=== PATIENT | male | born 1945 | race Caucasian/White ===

== ENCOUNTER 2016-12-03 15:25 | Inpatient (IN) | payer MEDICARE ==
[2016-12-03] VITALS (8 sets, daily range): BP systolic 91–117; BP diastolic 43–63; PULSE 57–72; RESP 14–20; O2SAT 97–100
[~2016-12-03] VITALS: Ht 175.3 cm; Wt 84.5 kg
[~2016-12-03 15:25] MED LIST: AMLO5TAB2 PO; ASPI-973 PO; BLOO-204 MC; CARV12.52 PO; DOXY100C2 PO; FOLI1TAB18 PO; INSU200I SQ; LANC1EAC MC; LEVO25TA5 PO; LISI10TA PO; LOVA20TA PO; MAGN400T23 PO; SPIR25TA3 PO; ZYL100 PO
--- NOTE | 2016-12-03 16:04 | ED.REPORT ---
HPI-General Illness Date of Service Dec 03, 2016 ED Provider: Lucas Yi MD Patient is a 71 year old male with a hx of HTN, DM, and CVA who presents to the ED from his PCP Dr. Crawford for critical labs values including a high potassium level of 6.7. He reports essentially no symptoms at this time; states that he was going to the doctor for a wound check. He denies chest pain, SOB, constipation, hematuria, hematochezia, headache, fever, vision changes, or any other symptoms. Nursing Notes Stated Complaint: CRITICAL LAB VALUES Chief Complaint: General Complaint Nursing Notes Reviewed: Yes Allergies: Coded Allergies: No Known Allergies (Unverified , 06/02/15) Scheduled Allopurinol (Allopurinol) 100 Mg Tablet 100 MG PO BID Amlodipine (Amlodipine) 5 Mg Tablet 5 MG PO DAILY Aspirin (Aspirin) 81 Mg Tablet 81 MG PO DAILY Carvedilol (Carvedilol) 12.5 Mg Tablet 12.5 MG PO BID Doxycycline Hyclate (Doxycycline Hyclate) 100 Mg Capsule 100 MG PO BID Folic Acid (Folic Acid) 1 Mg Tablet 1 MG PO DAILY Insulin Lispro (Humalog Kwikpen) 200 Unit/Ml (3 Ml) Insuln.pen 200 UNIT SQ ASDIRECTED Levothyroxine (Levothyroxine) 25 Mcg Tablet 25 MCG PO DAILY Lisinopril (Lisinopril) 10 Mg Tablet 10 MG PO DAILY Lovastatin (Lovastatin) 20 Mg Tablet 20 MG PO HS Magnesium Oxide (Mag-Oxide) 400 Mg Tablet 400 MG PO BID Spironolactone (Spironolactone) 25 Mg Tablet 0.5 TAB PO DAILY General Time Seen by MD: 15:53 Chief Complaint Other (Critical lab values) Hx Obtained From: Patient Arrived By: Walk-in Sudden in Onset?: Yes Onset Occurred: Just prior to arrival Severity: Current: No pain currently Severity: Maximum: No pain Past Medical History Past Medical History CHF Possible Afib Hypogonadism MRSA Reports: Diabetes mellitus, Hypertension, Stroke (With residual R sided weakness and aphasia ) Reports: Renal failure, Thyroid disease Past Surgical History None reported Smoking History Unknown if Ever Smoker Social History Has part-time caregiver Alcohol Use: "Social" Other Social History: Lives alone Review of Systems Full Review of Systems Constitutional: Denies: Fever Respiratory: Denies: Shortness of breath Cardiovascular: Denies: Chest pain GI: Reports: Diarrhea, Denies: Constipation, Hematochezia Male: Denies Hematuria Neurologic: Denies: Headache, Vision change Complete sys rev & neg: except as marked. Physical Exam Nursing note and vitals reviewed. Constitutional: Eldelry male sittting up in bed. Not diaphoretic. Head: Normocephalic and atraumatic. Mouth/Throat: Oropharynx is clear and moist. No oropharyngeal exudate. Eyes: EOM are normal. Pupils are equal, round, and reactive to light. Area of erythema to medial aspect of L lower lid that patient states is improving. Cardiovascular: Irregularly irregular. Equal and intact distal pulses throughout. Pulmonary/Chest: Effort normal and breath sounds normal. No respiratory distress. Abdominal: Soft. No distension. There is no tenderness, rebound, or guarding. Musculoskeletal: Range of motion grossly intact, moving all extremities. No tenderness appreciated. Neurological: AOx3. Grossly nonfocal exam. Appears to have residual aphasia from previous CVA. Skin: Warm and dry, no rashes or pallor appreciated. Bandaged wounds to R arm. Psychiatric: Appropriate mood and affect. Behavior appears normal. Vital Signs Vital Signs Date Time Temp Pulse Resp B/P Pulse Ox O2 Delivery O2 Flow Rate FiO2 12/03/16 17:30 61 14 101/53 97 Room Air 12/03/16 15:30 35.8 72 16 91/55 100 Room Air Interpretation & Diagnostics Lab Results Interpretation Result Diagram: 12/03/16 1645 12/03/16 1645 Test 12/03/16 16:45 12/03/16 18:10 White Blood Count 6.1th/mm3 (3.8-10.1) Red Blood Count 2.63mil/mm3 (4.40-5.80) Hemoglobin 8.4g/dL (13.8-17.2) Hematocrit 24.6% (41.0-50.0) Mean Corpuscular Volume 93.5fL (81-100) Mean Corpuscular Hemoglobin 31.9pg (27.0-35.0) Mean Corpuscular Hemoglobin Concent 34.1% (32.0-37.0) Red Cell Distribution Width 11.7% (12.3-15.4) Platelet Count 164bil/L (150-400) Neutrophils (%) (Auto) 77.2% (40-74) Lymphocytes (%) (Auto) 11.1% (14-46) Monocytes (%) (Auto) 8.5% (4-12) Eosinophils (%) (Auto) 2.8% (0-5) Basophils (%) (Auto) 0.2% (0-3) Prothrombin Time 11.4sec (8.1-12.5) Prothromb Time International Ratio 1.06ratio Sodium Level 127mEq/L (134-144) Potassium Level 6.7mEq/L (3.5-5.2) Chloride Level 99mEq/L (97-108) Carbon Dioxide Level 14mmol/L (18-29) Blood Urea Nitrogen 59mg/dL (8-27) Creatinine 3.81mg/dL (0.76-1.27) Estimat Glomerular Filtration Rate 17mL/min (>59) Glucose Level 152mg/dL (60-99) Calcium Level 8.8mg/dL (8.5-10.1) Total Bilirubin 0.4mg/dL (0.0-1.2) Aspartate Amino Transf (AST/SGOT) 14U/L (0-50) Alanine Aminotransferase (ALT/SGPT) 13U/L (0-44) Alkaline Phosphatase 119U/L (25-160) Troponin T 0.020ug/L (0.0-0.011) Total Protein 7.2g/dL (6.4-8.4) Albumin 3.3g/dL (3.4-5.0) ECG Interpretation ECG Interpretation: Afib with a rate of 145 No acute ischemic changes, does have shortened QT and possible broadening of the QRS Time: 16:33 Interpreted by: ED physician X-Ray Chest Interpretation Chest Xray Interpretation: IMPRESSION: 1. Prominent perihilar lung markings are suspicious for pulmonary vascular congestion/edema. Please correlate clinically. 2. Mild cardiomegaly. 2. Abnormal appearance of the left humeral head most likely is related to previous trauma. The patient does not have a history of trauma (prior fracture), dedicated left shoulder imaging is recommended. Dictated by: Spencer Ji M.D. on 12/03/2016 at 15:50 Approved by: Spencer Ji M.D. on 12/03/2016 at 15:55 View: Portable, 1 view Interpretation / Wet Read by: Interpret - Radiologist Re-Eval/Medical Decision Med Decision/Clinical Course In summary, 71-year-old male with a complex past medical history presenting to the ED from clinic for evaluation of hyperkalemia. Patient is currently asymptomatic with no chest pain, no shortness of breath. His EKG does not demonstrate any acute ischemic changes, though does have shortened QT, broader QRS. Patient was given calcium, sodium bicarbonate, insulin, and glucose for his hyperkalemia. Of note, he does have a mildly elevated troponin and what appears to be an acute kidney injury. Patient denies knowing that he has any kidney problems. CXR w/ incidental findings concerning for remote injury to the shoulder, though patient reports no trauma or pain. Given the above, plan admission for further evaluation and management, close monitoring, and further workup. Patient agreeable to the plan as stated, no further questions. Time of Eval: 16:17 Re-Evaluation/Progress Note: Discussed tenative plan for admission. Patient understands and agrees with plan. All questions addressed at this time. Consultation : Referral / Consult Name: Viky Antunez DO Consulted With: Hospitalist Call Returned at: 18:04 Auditor Appraiser: Will see patient, Agrees with eval, Agrees with plan, Accepts admit Note: Discussed pt's case. Accepts admit. Counseled Regarding: Diagnosis, Lab results, Need for admission Discharge & Departure Primary Impression: Hyperkalemia Disposition: ADMITTED TO HOSPITAL Discharge Condition All VS Reviewed: Yes Condition: Stable Referrals: Carlos Crawford DPM (PCP) Crit Care Except Billable Proc Time Spent: 30-74 minutes Services Performed: Patient management by me, Time spent at bedside, Reviewing test results, Reviewing imaging, Discussing patient care, Documentation in record Critical Care Notes: Please see MDM Scribe Attestation Portions of this note were transcribed by Dez Bryson. I, Dr. Yi personally performed the history, physical exam and medical decision-making; I reviewed and confirmed the accuracy of the information in the transcribed note. Signed by: Dez Bryson 12/03/16, 1445 copies to: Carlos Crawford DPM, William B MD Dec 03, 2016 16:04 DEZ BRYSON Dec 03, 2016 16:13
[2016-12-03] MEDS ORDERED: 0.9% Sodium Chloride 1,000 ML IV ONE (16:14)
[2016-12-03] MEDS ORDERED: Calcium GLUCOnate 10% (Gm) 1 Gm/10 mL Inj IVPUSH PRN (16:15)
[2016-12-03] MEDS ORDERED: Sodium Bicarb (50 mEq) 8.4% 1 mEq/mL 50 mL Syringe IVPUSH ONE (16:15)
[2016-12-03] MEDS ORDERED: Insulin Human REGular-Omnicell 100 Unit/mL IV ONE (16:25)
[2016-12-03] MEDS ORDERED: Dextrose 10% 250 ML IV ONE (16:25)
--- NOTE | 2016-12-03 16:56 | DRSVH ---
PROCEDURE: X-RAY CHEST ONE VIEW, PORTABLE ([id number]) INDICATIONS: Hyperkalemia TECHNIQUE: One view of the chest was acquired. COMPARISON: None. FINDINGS: Surgical changes and devices: None. Lungs and pleura: Prominent perihilar lung markings are identified without lobar consolidation, pneum othorax, or large effusion. Mediastinum: Mediastinal contours appear normal. Heart size is mildly enlarged. There is aortic at herosclerosis. Bones and chest wall: There is abnormal appearance of the left humeral head, probably related to prio r trauma. Dystrophic calcifications along the expected location of the acromion clavicular ligaments is present with corresponding prominent degenerative changes of the chromic clavicular joint are pre sent on the right. Age-appropriate degenerative changes of the spine are noted. Overlying soft tissu es appear unremarkable. IMPRESSION: 1. Prominent perihilar lung markings are suspicious for pulmonary vascular congestion/edema. Please correlate clinically. 2. Mild cardiomegaly. 2. Abnormal appearance of the left humeral head most likely is related to previous trauma. The em ent does not have a history of trauma (prior fracture), dedicated left shoulder imaging is recommende d. Dictated by: Spencer Ji M.D. on 12/03/2016 at 15:50 Approved by: Spencer Ji M.D. on 12/03/2016 at 15:55
[2016-12-03 16:57] LABS: BASOPHILS % (AUTO) 0.2 % (0-3); EOSINOPHILS % (AUTO) 2.8 % (0-5); MONOCYTES % (AUTO) 8.5 % (4-12); Mean Corpuscular Hemoglobin 31.9 pg (27.0-35.0); Mean Corpuscular Volume 93.5 fL (81-100); NEUTROPHILS % (AUTO) 77.2 % (40-74); Platelet Count 164 bil/L (150-400)
[2016-12-03 17:10] LABS: INR 1.06 ratio
[2016-12-03 17:18] LABS: TROPONIN T 0.02 ug/L (0.0-0.011)
[2016-12-03 18:35] LABS: APPEARANCE,URINE CLEAR (CLEAR,HAZY); COLOR,URINE YELLOW (YELLOW); OCCULT BLOOD,URINE NEGATIVE (NEGATIVE); UROBILINOGEN,URINE NORMAL (NORMAL)
[2016-12-03] MEDS ORDERED: Alum-Mag Hydrox-Simeth 30 mL Suspension PO PRN (19:15)
[2016-12-03] MEDS ORDERED: Ondansetron 2 mg/mL 2 mL Inj IVPUSH PRN (19:15)
[2016-12-03] MEDS ORDERED: 0.9% Sodium Chloride 1,000 ML IV SCH ×2 (19:15→19:50)
[2016-12-03] MEDS ORDERED: Polyethylene Glycol (PEG) 17 Gm Powder PO PRN (19:15)
[2016-12-03] MEDS ORDERED: Glucose 40% Oral Gel 15 Gm Tube PO PRN (20:30)
--- NOTE | 2016-12-03 20:38 | PCM.HPMED ---
Subjective Date of Service Dec 03, 2016 Primary Provider: Admitting Physician: Viky Antunez DO Primary Care Physician: Lalita Doe MD Attending Physician: Viky Antunez DO Allergies Coded Allergies: No Known Allergies (Unverified , 06/02/15) PMH Social History Hx Alcohol Use: Yes Hx Tobacco Use: No Smoking Status: Unknown if Ever Smoker Exam Vital Signs Vital Sign - Last Date Time Temp Pulse Resp B/P Pulse Ox O2 Delivery O2 Flow Rate FiO2 12/03/16 18:53 59 17 92/43 98 Room Air 12/03/16 15:30 35.8 Lab and Diagnostics Result Diagram: 12/03/16 1645 12/03/16 1645 Assessment & Plan HPI: Patient is a 71-year-old male who presents to the emergency room with the complaint of hyperkalaemia. The patient was in the wound care clinic today and had labs drawn and it was noted that he had hyperkalemia. The patient was brought over to the emergency room and found to still be in A. fib with no significant T-wave changes. The patient does have some signs of mild dementia which makes him a difficult historian. The patient currently denies any chest pain, shortness of breath, nausea, vomiting, diarrhea. Patient states that he does have some constipation and his last bowel movement was 2 days ago and his lower extremity edema is chronic in nature. 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 The patient stated that he had right-sided weakness and was unable to speak for several months however he has regained his strength o..n his right side but his speech does remain impaired. Home medications: Allopurinol 100mg PO BID Amlodipine 5 mg daily Aspirin 81 mg daily Carvedilol 12.5 mg by mouth twice a day Doxycycline on 10 mg by mouth twice a day Folic acid 1 mg by mouth daily Humalog 200 units subcutaneous Levothyroxine 25 g by mouth daily Lisinopril 10 mg daily Lovastatin 20 mg daily Magnesium oxide 400 mg by mouth twice a day Spironolactone 12.5 mg daily Allergies: NKDA PMHx: Diabetes type II CAD Paroxysmal A. 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 Please see HPI for pertinent positives, all other systems are negatives. Physical Exam: GEN: Patient was awake, alert, responding appropriately to questions HEENT: Pupils equal round and reactive to light, extraocular eye muscles intact , Neck soft supple, trachea midline, nomocephalic/atraumatic, CV: Irregular rhythm, no murmur auscultated Respiratory: CTAB, no wheezes, rales, rhonchi GI: +bowel sounds x4, soft, compressible, nontender to palpation, mildly distended EXT: +3 pitting edema in the LE to the knee, multiple bruises and skin changes on the upper extremities secondary to previous anticoagulation usage Neuro: + slurred speech, 5/5 UE strength, decreased CN 12, CN II-XI grossly intact Psych: mood and affect were appropriate Assessment and Plan 71-year-old male with chronic lower extremity edema presents secondary to hyperkalemia Hyperkalemia, present on admission -K 6.7 - Continue telemetry -Kayexalate every 6 hours -Hold spironolactone -IV fluids 100 mL an hour 1 L -EKG in the morning Elevated troponins, present on admission -Trend troponins - EKG in the morning Hypertension -Patient is currently hypotensive BP: 92/49 -Hold carvedilol, lisinopril, amlodipine -Continue to monitor Acute on CKD , present on admission - Cr. 3.81, baseline 2.4 from last admission on 06/04/2015 -Continue IVF x 1L -Follow up CMP in the morning -Continue to monitor Chronic hyponatremia, present on admission -Na 127 - Continue IV fluids x 1L -Follow up CMP in the morning Paroxysmal atrial fibrillation -Continue to monitor on telemetry -Patient currently not anticoagulated secondary to previous CVA while on Pradaxa -Continue aspirin -Continue rate control Diabetes -Insulin sliding scale -Accu-Cheks before meals at bedtime -Hemoglobin A1c pending -Diabetic diet Hypothyroidism, present on admission -TSH pending -Continue levothyroxine 25 g daily Hyperlipidemia, present on admission stable -Continue statin Peripheral vascular disease with chronic lower extremity edema -Consult wound care Code Status: Full code Diet: Heart healthy and diabetic Disposition: Due to the nature of the patient's current diagnosis and multiple comorbidities anticipated stay is greater than 2 midnight VTE Prophylaxis: Sub-Q Heparin (Unfractionated) Resuscitation Status: CPR: Attempt Resuscitation Time spent 60 minutes Viky Antunez DO Dec 03, 2016 20:38
--- NOTE | 2016-12-03 20:47 | PCM.ADCARE ---
Advance Care Planning Note Plan: Purpose of encounter: Goals of care Parties in attendance: The patient and Dr. Antunez Decisional capacity: Marginal Diagnosis: Paroxysmal afib PVD HTN Hyperkalemia DM CAD Hypothyroidism Chronic hyponatremia Acute on chronic kidney disease Plan: The patient is aware of the current diagnosis and would like to continue to be full code. The patient understands that this means for chest compressions , intubation, pressors, and all measures involved with CPR. The patient does have some mild dementia and oriented to self and is very clear on his wishes and wishes to continue to be full code. The patient states that he is not and that his person of contact for any medical decision is Lea Reynaga. The patient states that he does not have the phone number at this time but will get us this phone number. He states that his friend does work at [employer] in [place] if we need to get ahold of Lea prior to getting the contact information. CODE STATUS: Full code Time spent with advanced care planning: Greater than 20 minutes Viky Antunez DO Dec 03, 2016 20:47
[2016-12-03 21:59] LABS: TROPONIN T 0.02 ug/L (0.0-0.011)
[2016-12-03] MEDS: Insulin LISPRO 300 Unit/3 mL Inj SUBQ SCH (22:00)
--- NOTE | 2016-12-03 23:06 | WOUND ---
[address] [address] [facility] PATIENT: WILLIAM JOSHI : 1945 MR#: [id number] ADMIT: 12/03/2016 JOB ID: [id number] DATE OF SERVICE: 12/03/2016 HISTORY OF PRESENT ILLNESS: I am seeing this patient because of an injury to his right forearm. He fell a few days ago and on his way down struck the dorsal aspect of his right forearm on a table. He is also being followed by Dr. Crawford for venous foot problems. The patient is also diabetic. PHYSICAL EXAMINATION: In the clinic now, he is bright. He has a little bit of slurred speech though. He has history of a CVA. Blood pressure today is 91/55, pulse is 65, respirations are 18, temperature is 36.9. His weight is 199 pounds. He is drinking coffee now. His glucose in the clinic is 153. Wound #1, right forearm, measures 1.8 x 2 x 0.4. Fibrin covers the entire wound. He is starting to get some kind of granulation along the margins of the wound, but not the center. The periwound skin is intact. Moderate drainage. No odor or eschar. No exposed bone or tendon. I did a selective debridement with 2% lidocaine for anesthetic and I used a small curette. I removed the overlying biofilm and caused a little bit of bleeding of the underlying granulation tissue and underlying subcutaneous tissue. I debrided the entire wound and there are no change in wound measurements. Hemostasis was achieved with pressure. He tolerated the debridement well. PLAN: To dress this wound with Xeroform, then gauze and adhesive foam. Change every 2-3 days. Follow up in a week.
[2016-12-03] MEDS: Heparin 5,000 Unit/mL Inj SUBQ SCH (23:47)
[2016-12-04] VITALS (8 sets, daily range): BP systolic 96–120; BP diastolic 39–71; PULSE 68–98; RESP 18–20; O2SAT 94–97
[2016-12-04 02:53] LABS: Mean Corpuscular Hemoglobin 31.5 pg (27.0-35.0)
[2016-12-04 03:31] LABS: TROPONIN T 0.01 ug/L (0.0-0.011)
--- NOTE | 2016-12-04 03:46 | NUR ---
Admit/BP/Potassium Pt admitted to room 2008 around 1940, pt arrived in no distress, denied any pain or SOB. BP 90s/40s, MD notified, repeat BMP ordered and Kayexalate Q6 started per orders. Potassium was 6.3 w/ recheck, MD notified. Morning K+ 6.6, MD notified. Tele Afib 70s. Pt up to BR w/ SBA, denied any dizziness. Pt A&Ox3, able to answer admission questions but does not appear to know meds and doses well. Right forearm and bilateral leg dressing not removed for assessment as pt came from wound clinic.
[2016-12-04] MEDS: Insulin LISPRO 300 Unit/3 mL Inj SUBQ SCH ×4 (08:00→22:00)
[2016-12-04] MEDS: Heparin 5,000 Unit/mL Inj SUBQ SCH ×2 (08:34→17:27)
--- NOTE | 2016-12-04 11:19 | NUR ---
Evaluation completed. Please go to "Notes" then click on "Assessments and Notes" (bottom left corner of screen). Then select appropriate discipline tab on top of screen.
[2016-12-04] MEDS ORDERED: Furosemide 10 mg/mL 4 mL Inj IVPUSH ONE (11:40)
--- NOTE | 2016-12-04 13:35 | PCM.PNMED ---
Subjective Date of Service Dec 04, 2016 Subjective Mr. Mclaughlin states that he feels slightly improved since admission, he is unable to clearly relate how he felt prior to admission beyond "bad", but in any case feels "less bad" today. He denies chest pain, SOB, STINSON, abdominal pain, dysuria , diarrhea, nausea, or vomiting. Patient has 2 BMs overnight with minimal drop in K. Comprehensive ROS negative except as outlined above. Exam Vital Signs Vital Sign - Last Date Time Temp Pulse Resp B/P Pulse Ox O2 Delivery O2 Flow Rate FiO2 12/04/16 13:07 36.5 68 18 96/39 97 Room Air Intake and Output 12/03/16 12/03/16 12/04/16 Cumulative From/Thru 15:00 23:00 07:00 12/03/16 15:30 - 12/04/16 06:40 Intake Total 1000 ml 1171 ml 2171 ml Output Total 400 ml 400 ml Balance 1000 ml 771 ml 1771 ml Intake Oral 480 ml 480 ml IV Total 1000 ml 691 ml 1691 ml Output Urine Total 400 ml 400 ml # Voids 3 3 # Bowel Movements 2 2 Exam Gen: A/O x3 pleasant elderly gentleman in NAD Neck: supple, non tender, no thyromegaly, Full ROM HEENT: readily apparent left sided facial droop with nasal labial fold asymmetry apparently unchanged from baseline, PERRL, EOMI, no scleral icterus, no conjunctival pallor CV: Irregularly Irregular rhythm, no murmurs rubs or gallops Resp: Lungs CTA BL, no wheezing rales or rhonchi Abdomen: Soft, non tender, no organomegaly, BS + 4Q Extr: diffuse ecchymosis on BL UE, legs with RUIZ bandage wrap extending up to knees, moderate BL LE pitting edema Neuro: slightly dysarthria, marked L sided facial droop, strength equal and intact BL Psych: Appropriate mood and affect. IVs and Medications Medications Reviewed: Medications were reviewed in detail Lab and Diagnostics Item Value Date Time Red Blood Count 2.57 mil/mm3 L 12/04/16224 Mean Corpuscular Volume 93.0 fL 12/04/16224 Mean Corpuscular Hemoglobin 31.5 pg 12/04/16224 Mean Corpuscular Hemoglobin Concent 33.9 % 12/04/16224 Red Cell Distribution Width 11.7 % L 12/04/16224 Estimat Glomerular Filtration Rate 19 mL/min 12/04/16224 Uric Acid 2.8 mg/dL 12/04/16 0825 Calcium Level 8.5 mg/dL 12/04/16224 Total Bilirubin 0.4 mg/dL 12/04/16224 Alanine Aminotransferase (ALT/SGPT) 11 U/L 12/04/16224 Aspartate Amino Transf (AST/SGOT) 13 U/L 12/04/16224 Alkaline Phosphatase 113 U/L 12/04/16224 Troponin T 0.010 ug/L 12/04/16224 Total Protein 6.1 g/dL L 12/04/16224 Albumin 3.1 g/dL L 12/04/16224 Prealbumin 12 mg/dL L 12/04/16224 Result Diagram: 12/04/1622412/04/16224 Microbiology Nasal MRSA negative Urine culture with insufficient growth X-Rays, CTs and MRIs X-RAY CHEST ONE VIEW, PORTABLE IMPRESSION: 1. Prominent perihilar lung markings are suspicious for pulmonary vascular congestion/edema. Please correlate clinically. 2. Mild cardiomegaly. 2. Abnormal appearance of the left humeral head most likely is related to previous trauma. The patient does not have a history of trauma (prior fracture) , dedicated left shoulder imaging is recommended. Dictated by: Spencer Ji M.D. on 12/03/2016 at 15:50 Approved by: Spencer Ji M.D. on 12/03/2016 at 15:55 . 12-lead ECG Afib with a rate of 145 No acute ischemic changes, does have shortened QT and possible broadening of the QRS Assessment & Plan 71-year-old male with chronic lower extremity edema presents and hyperkalemia secondary to likely ORION on CKD of as yet undetermined etiology, highly likely to be related to acute decompensated systolic CHF. Hyperkalemia, present on admission, acute. Active -K 6.7 on admission with associated ECG changes -Continue telemetry -Kayexalate every 6 hours, patient responding with BMs -Hold spironolactone -IV fluids 100 mL an hour 1 L om presentation -Lasix per nephrology team Elevated troponin of uncertain significance, present on admission, acute. Active -Trend troponins -Iniital trop weakly positive, subsequent trend consistently negative Hypertension, present on admission, chronic. Stable -Patient is currently hypotensive BP: 92/49 -Hold carvedilol, lisinopril, amlodipine due to hypotension and Hyperkalemia -Continue to monitor Acute on CKD , present on admission -Cr. 3.81, baseline 2.4 from last admission on 06/04/2015 -IVF x 1L on presentation -Continue to follow CMP -Continue to monitor -Nephrology consult and we appreciated their recommendations -Diuresis per nephrology Chronic hyponatremia, present on admission, acute on chronic. Active -Na 127 on presentation, subsequently trending towards normal -Normal for this patient is likely closer to 130 -Continue to follow CMP Paroxysmal atrial fibrillation, present on admission, chronic. Active -Continue to monitor on telemetry -Patient currently not anticoagulated secondary to previous CVA while on Pradaxa -Continue aspirin -Continue rate control with metoprolol Diabetes type 2, present on admission, chronic. Active -Insulin sliding scale -Accu-Cheks before meals at bedtime -Hemoglobin A1c pending -Diabetic diet Hypothyroidism, present on admission, chronic. Stable -TSH pending -Continue levothyroxine 25 g daily Hyperlipidemia, present on admission stable, chronic. Stable -Continue statin Peripheral vascular disease with chronic lower extremity edema, present on admission, chronic. Active -Consult wound care Disposition: Patient will likely be able to DC home with the possibility of home health nursing to be determined by social work based upon anticipated needs. Pain Evaluation: Adequate Pain Control VTE Prophylaxis: Sub-Q Heparin (Unfractionated) VTE Mechanical Devices: Intermittant Pneumatic CD Resuscitation Status: CPR: Attempt Resuscitation Brandon Lynn DO Dec 04, 2016 13:35 Hyperlipidemia, present on admission stable -Continue statin Peripheral vascular disease with chronic lower extremity edema -Consult wound care Code Status: Full code Diet: Heart healthy and diabetic Disposition: Due to the nature of the patient's current diagnosis and multiple comorbidities anticipated stay is greater than 2 midnight VTE Prophylaxis: Sub-Q Heparin (Unfractionated) VTE Mechanical Devices: Intermittant Pneumatic CD Resuscitation Status: CPR: Attempt Resuscitation Brandon Lynn DO Dec 04, 2016 13:35
--- NOTE | 2016-12-04 14:06 | CONS ---
[address] [address] CONSULTATION REPORT PATIENT: WILLIAM JOSHI : 1945 MR#: [id number] ADMIT: 12/03/2016 JOB ID: [id number] DATE OF SERVICE: 12/04/2016 RENAL CONSULTATION: HISTORY: The patient is a 71-year-old white male, who was admitted to [facility] for acute on chronic kidney injury and acute hyperkalemia. Renal consultation is being sought for further evaluation of his acute on chronic kidney injury. The patient is somewhat of a difficult historian and has little insight or recollection of much of his medical history. He has a longstanding history of insulin-requiring diabetes, which goes back for a number of years. His diabetes has been complicated by peripheral vascular disease and diabetic ulcers on his legs and feet. [facility] and recently was there yesterday. At that time, he was found to have worsening lower extremity edema and laboratory was obtained and he was found to have a potassium of 6.7 along with a creatinine of 3.81. His baseline creatinine is in the middle 2 range. He was sent to the emergency department for further evaluation and admission. The patient denies history of any prior renal problems, and looking through his lab going back to May of 2015, at that time his creatinine was 2.4. In August of 2015 it had improved to 1.6. We have no labs since that time available in the system. He denies a history of any prior renal problems. There is no history of any prior hematuria, proteinuria, recurrent urinary tract infections, renolithiasis, frequent use of nonsteroidal anti-inflammatories or recent antibiotics, difficulty in urination or prostate problems. It must be added that the patient is a rather poor historian and has limited insight. I do not see in our system where he has had any recent imaging procedures involving radiocontrast. He states that he has not had any fever, chills, chest pain, cough, orthopnea, wheezing, nausea, vomiting, or diarrhea. He is unable to give much information about his lesions on his lower extremity. DATE OF SERVICE: PAST MEDICAL HISTORY: Is significant for: 1. Insulin-requiring diabetes mellitus as detailed above. 2. Biventricular congestive heart failure. 3. Atrial fibrillation. 4. Hypothyroidism. 5. Stroke with a residual mild right-sided weakness and some aphasia. 6. MRSA bacteremia and skin infections in the past. 7. There is also history of gout. PAST SURGICAL HISTORY: Is unremarkable as the patient does not recall having surgery. ALLERGIES: He is not allergic to any food or any medications. SOCIAL HISTORY: He denies the use of current alcohol, tobacco or illicit drugs. He apparently has a part-time caregiver. He states that he is compliant with his medications. However, he is unable to mention any of his medications. From our list, it appears he is on allopurinol, amlodipine, aspirin, carvedilol, doxycycline, folic acid, lisinopril, levothyroxine, lisinopril, lovastatin, Mag oxide and spironolactone. FAMILY HISTORY: Noncontributory. REVIEW OF SYSTEMS: As detailed above. Otherwise is unobtainable. PHYSICAL EXAMINATION: Reveals a somewhat disheveled, unkempt 71-year-old white male who was alert, awake and able to answer only very simple questions. He did have some mild dysarthric speech which appears to be chronic. His blood pressure at time of my evaluation was 104/70 with a heart rate of 86. HEENT examination is remarkable for a pustular lesion in the inferior lid of his left eye. Cornea, conjunctivae and sclerae otherwise were normal. Pupils and extraocular muscles were within normal limits. Neck is supple without adenopathy or thyromegaly. However, there was some jugular venous distention at 90 degrees. Lungs showed diffuse loud rhonchi in all lung verde and some bibasilar rales. Heart was irregularly irregular. Abdomen was distended with somewhat diminished bowel sounds. There was no free fluid noted. There was no tenderness, rebound, guarding, masses. However, he did have some mild hepatomegaly, hepatojugular reflux, and the liver was pulsatile to palpation. Extremities showed moderate pitting edema in both proximal and distal lower extremities. The distal lower extremities were wrapped in a dressing and this was not explored. Skin turgor was good and there was no evidence of any rashes. LABORATORY EXAMINATION: This morning, his sodium is 130, potassium 6.6, chloride of 102, bicarbonate 16, BUN and creatinine were 30 and 3.43. Glucose is 117. Liver function studies were normal and his albumin was 3.1. His white count this morning was 6.1, hemoglobin 8.1, hematocrit 23.9, red cell indices and platelet count were normal. Differential showed 77 neutrophils. Urinalysis showed a specific gravity of 1.010, pH was 5. Test for protein, glucose, ketones, occult blood and nitrates were all negative, as was his microscopic. IMPRESSION: 1. Acute on chronic kidney injury secondary to cellulitis of both distal lower extremities. 2. Baseline chronic kidney disease stage 3. 3. Hypertension with hypertensive heart disease and hypertensive nephrosclerosis with what appears to be biventricular congestive heart failure. 4. Diabetic nephropathy. 5. Type 4 renal tubular acidosis. 6. Hyperkalemia secondary to type IV renal tubular acidosis, but also acute on chronic kidney injury, spironolactone, carvedilol and lisinopril. RECOMMENDATION: I would like to hold the spironolactone and lisinopril at this time. I would also like to get a uric acid level along with a renal ultrasound and a serum protein electrophoresis. I would also like to start him on intravenous diuretics to mobilize some of the fluid in both distal lower extremities and in his lungs. intermediate designer, I do not feel that he is a good candidate for long-term dialysis. Once again, I would like to thank you for allowing me to participate in the care of this most pleasant and interesting patient. I will be following him closely with you.
--- NOTE | 2016-12-04 15:43 | NUR ---
Social work note - Initial assessment Arnoldo Lyles is a 71 yr old admitted for hyperkalemia. EMR reviewed: pt has [employer]. His PCp is Dr Doe. No Advanced Directives - MILD DISABILITIES TEACHER provided paperwork. No LTC insurance, no VA benefits. See attached CM initial assessment. MILD DISABILITIES TEACHER met with pt - introduced D/C planning and explained SW role. Pt lives with a room mate in [place]. He states that he is independent at baseline, uses no DME, states he drives. He is bruised, states that he has been falling at home recently. He denies having caregivers, states that he has meals on wheels. He plans to d/c home but would consider Home Health. MILD DISABILITIES TEACHER will follow to see if Pt would be appropriate for HH vs SNF. PT evaluation pending. Pt states that his NOK is Jonathan Reynaga - friend from [facility] [phone]. Assessment: Pt who is weak, appears to need assistance in hospital room. Would benefit from PT to assess for level of function. Plan: Pt would like to d/c home, would benefit from therapy. MILD DISABILITIES TEACHER will continue to follow. SANDRA Rosenthal Addendum: 12/04/16 at 1550 by LISBETH TOLENTINO SS Amended: Links added.
--- NOTE | 2016-12-04 16:14 | NUR ---
TRANSFER Pt transferred to a second day nurse, Maura Holliday Giving lasix with frequent urinating. Giving kayexelate with frequent loose stools. WC redressed bilateral lower legs and right forearm. No c/o pain. Up to bathroom with SBA, steady gait. Tolerating diet. Renal consult ordered. ECHO/EKG ordered. Pending MRSA swab.
--- NOTE | 2016-12-04 17:26 | NUR ---
Wound Note 71 yo male well known to the wound center, admitted to [facility] for hyperkalemia. Presents with superficial plantar ulcers (diabetic) at left and right feet, and weeping stasis wounds at both legs, clusters of which are less than 1 cm in diameter per ulcer. These were cleaned with saline and patient redressed with xeroform and kerlix wrap and coban over all. Patient also has a wound at his right forearm that is an apparent hematoma type injury that has been evacuated and now is dressed after cleaning with an adhesive foam dressing. None of his ulcerations are infected, will plan on follow up in the wound center on discharge. WS to change dressings 12/06.
--- NOTE | 2016-12-04 17:31 | DRSVH ---
[facility] [address] [place] [address] Echocardiogram Report Name: WILLIAM JOSHI KStudy Date: 12/04/2016 Height: 69 in Hospital Exam Location: [facility] Weight: 199 lb Gender: Male BSA: 2.1 m2 : 1945 Age: 71 yrs BP: 117/71 mmHg Reason For Study: CHF Ordering Physician: HOSPITALIST [facility] Performed By: Brent Grey Referring Physician: Joe Smith Interpretation Summary There is normal left ventricular wall thickness. The ejection fraction is estimated to be 55-60%. There is apical inferior wall hypokinesis. The left atrium is severely dilated. There is moderate to severe mitral regurgitation. The aortic valve is mildly calcified. There is mild to moderate tricuspid regurgitation. Right ventricular systolic pressure is estimated to be 44 mmHg plus the clinically estimated CVP which cannot be estimated on this exam. Procedure: A two-dimensional transthoracic echocardiogram with color flow and Doppler was performed. The study quality was technically adequate. There is no prior echocardiogram noted for this patient. The subcostal views were not obtained due to lack of an acoustic window. The suprasternal notch views were difficult to obtain and are suboptimal in quality. The patient was in atrial fibrillation with controlled ventricular rate during the exam. The patient had a heart rate of 78-111 beats per minute. Left Ventricle: The left ventricle is normal in size. There is normal left ventricular wall thickness. The ejection fraction is estimated to be 55-60%. There is apical inferior wall hypokinesis. Right Ventricle: The right ventricle is normal size. Atria: The left atrium is severely dilated. The right atrium is moderately dilated. The interatrial septum is intact with no evidence for an atrial septal defect. Mitral Valve: There is mild mitral annular calcification. The mitral valve chordae are thickened and/or calcified. There is moderate to severe mitral regurgitation. Aortic Valve: The aortic valve is trileaflet. The aortic valve is mildly calcified. The aortic valve opens well. There is trace aortic regurgitation. Tricuspid Valve: The tricuspid valve is normal in structure and function. There is mild to moderate tricuspid regurgitation. Right ventricular systolic pressure is estimated to be 44 mmHg plus the clinically estimated CVP which cannot be estimated on this exam. Pulmonic Valve: The pulmonic valve is not well visualized. There is trace pulmonic regurgitation. Great Vessels: The aortic root is normal size. The dimensions of the ascending aorta are normal. The pulmonary artery is normal size. The inferior vena cava was not visualized. Pericardium/ Pleura There is no pericardial effusion. There is no pleural effusion. MMode/2D Measurements & Calculations LVIDd: 5.5 cm LA dimension: 5.2 cm RA long axis Ao root diam LVIDs: 3.0 cm FS: 44.2 % LA A2 area: 25.9 cm RA area Aortic Jxn EPSS: 0.56 cm LA A4 area: 30.3 cm IVSd: 0.98 cm LA length (vol): 6.2 cm : 22.9 cm asc Aorta LVPWd: 0.85 cm LA vol: 106.6 ml RA vol: 86.7 mlDiam: 3.3 cm LA vol index RA : 42.1 mm2 : 51.7 ml/m2 LV gonzalez. diameter/BSA LV sys. diameter/BSA RVD1 (basal) RVD2 (mid) (cm/m^2): 2.7 (cm/m^2): 1.5 : 4.2 cm Doppler Measurements & Calculations Ao V2 max MV E max hans MV E/A: 164.2 TR max hans : 154.4 cm/sec : 128.8 cm/sec Med Peak E' Hans : 329.1 cm/sec Ao max PG MV A max hans TR max PG : 9.5 mmHg : 0.78 cm/sec E/E' med: 22.7 : 43.7 mmHg Ao mean PG PA V2 max : 5.6 mmHg : 69.3 cm/sec PA mean PG PA Accel Time : 0.07 sec MV V2 mean Ao V2 mean MR flow rate PA V2 mean : 97.8 cm/sec : 113.6 cm/sec : 53.1 cm/sec MV mean PG Ao V2 VTI: 31.6 cm : 88.0 cm3/sec PA pr(Accel) MR PISA radius : 55.0 mmHg MV V2 VTI: 17.8 cm MV dec time : 0.15 sec Electronically signed by: Julián Garrido on Reading Physician:12/04/2016 05:30 PM
--- NOTE | 2016-12-04 18:35 | NUR ---
Cardiac Received a call from [employer] at around 1800 that pt has had a run of PVC's in groups of 5. Pt assessed and reports no chest pain, no shortness of breath or palpitations. VSS at 115/60, HR 84, RR16 and 96% on RA. Pt states he feels "just fine". Monitoring and care ongoing.
--- NOTE | 2016-12-04 22:59 | NUR ---
Tele/PVCs Notified that pt tele Afib 90s-100s (rate increased from before) w/ frequent PVCs, about 40/min. Also notified that pt had not had potassium level rechecked since early intervention specialist and no mag had been checked. Pt asymptomatic, denying any pain/palpitations/SOB, vitals stable. ordered BMP and Mag, awaiting results. No other orders given at this time. Addendum: 12/05/16 at 0342 by VIANNEY KILGORE RN Potassium normalized, Mag of 1.6, pt continues w/ frequent runs of PVCs and PVC count in 30s-40s/min, pt continues to deny symptoms, vitals stable. notified and ordered mag rider.
[2016-12-05] VITALS (8 sets, daily range): BP systolic 111–134; BP diastolic 64–72; PULSE 80–115; RESP 18–24; O2SAT 91–96
[2016-12-05] MEDS: Heparin 5,000 Unit/mL Inj SUBQ SCH ×3 (00:03→18:25)
[2016-12-05 00:36] LABS: Magnesium 1.6 mg/dL (1.6-2.6)
[2016-12-05] MEDS ORDERED: Magnesium Sulf 4 Gm/100 mL H2O 4 GM in IV Premix 1 EACH IV ONE (01:50)
[2016-12-05 04:42] LABS: BASOPHILS % (AUTO) 0.1 % (0-3); EOSINOPHILS % (AUTO) 2.1 % (0-5); MONOCYTES % (AUTO) 6.9 % (4-12); Mean Corpuscular Hemoglobin 31.6 pg (27.0-35.0); Mean Corpuscular Volume 92.5 fL (81-100); NEUTROPHILS % (AUTO) 84.7 % (40-74); Platelet Count 192 bil/L (150-400)
[2016-12-05 05:13] LABS: Magnesium 2.3 mg/dL (1.6-2.6); Phosphorus 3.5 mg/dL (2.5-4.9)
[2016-12-05] MEDS: Insulin LISPRO 300 Unit/3 mL Inj SUBQ SCH ×4 (08:00→21:40)
--- NOTE | 2016-12-05 10:58 | NUR ---
Tele Pt denies SOB, denies chest pain. Afib with accessory pathway PVCs per telemetry monitor. Pt resting this shift. Care continues
--- NOTE | 2016-12-05 11:36 | PCM.PNNEPH ---
Jovanna Patton DO 12/05/16 1136: Subjective Date of Service Dec 05, 2016 Subjective Patient reports he is doing well today. Denies nausea, vomiting, fever, chills , dyspnea, chest pain, palpitations. His appetite is good as far as he is concerned. He is pleased that his swelling is improved today. Exam Vital Signs Vital Sign - Last Date Time Temp Pulse Resp B/P Pulse Ox O2 Delivery O2 Flow Rate FiO2 12/05/16 09:08 36.8 88 18 120/65 95 Room Air Intake and Output 12/04/16 12/04/16 12/05/16 Cumulative From/Thru 15:00 23:00 07:00 12/03/16 15:30 - 12/05/16 06:23 Intake Total 1430 ml 653 ml 4254 ml Output Total 600 ml 650 ml 1650 ml Balance 830 ml 3 ml 2604 ml Intake Oral 1430 ml 592 ml 2502 ml IV Total 61 ml 1752 ml Output Urine Total 600 ml 650 ml 1650 ml # Voids 3 # Bowel Movements 4 4 10 Exam Gen: A/O x3 pleasant elderly gentleman in NAD Neck: supple, non tender, no JVD HEENT: readily apparent left sided facial droop with nasal labial fold asymmetry apparently unchanged from baseline, PERRLA, EOMI, no scleral icterus CV: Irregularly irregular rhythm, no murmurs rubs or gallops Resp: CTAB; no wheezing, rales, or rhonchi Abdomen: Soft, non tender, bowel sounds present throughout Extr: Mild pitting edema up to the knee; RUIZ wrap present on bilateral lower legs Radial pulse present and equivalent bilaterally, dorsalis pedis difficult to appreciate IVs and Medications Medications Reviewed: Medications were reviewed in detail Lab and Diagnostics Result Diagram: 12/05/1642912/05/16429 Plan Plan: 1) Acute on chronic kidney injury, improved. - Baseline CKD stage 3. - Await renal ultrasound. - Awaiting results of SPEP. - Continue to monitor BMP. 2) Acute hyperkalemia, improved. - Continue to hold spironolactone and lisinopril at this time. - Will begin patient on torsemide 20 mg daily and chlorthalidone 25 mg daily beginning today. - May cautiously consider re-starting lisinopril prior to d/c. 3) Type 4 RTA. - Contributing to hyperkalemia. - Patient will not tolerate correction use of multiple medications that contribute to potassium retention. - Holding spironolactone as above. Consider re-starting lisinopril as above. 4) Diastolic CHF with peripheral edema. - Continuing diuresis as above in #2 in an effort to optimize fluid status. 5) Type 2 diabetes mellitus. 6) Hypertension. Thank you for the consultation. We will continue to follow the patient during this admission. Joe Smith DO 12/05/16 1145: Exam Lab and Diagnostics Result Diagram: 12/05/160 12/05/16429 Plan Plan: She was seen and examined along with the internal medicine resident. Patient appears to be more alert and interactive today. We have thoroughly reviewed his plan and this is detailed in the note above. Jovanna Patton DO Dec 05, 2016 11:36 Joe Smith DO Dec 05, 2016 11:45
--- NOTE | 2016-12-05 11:47 | PCM.PNMED ---
Subjective Date of Service Dec 05, 2016 Subjective Mr. Lyles states that he feels much better compared to day of admission. He states that his energy levels are improving and his LE edema has markedly reduced. He has no specific complaints at this time. Overnight the patient had multiple runs of frequent asymptomatic PVCs, lab evaluation revealed low Mag which was subsequently replaced and PVCs decreased. Comprehensive ROS negative except as outlined above. Exam Vital Signs Vital Sign - Last Date Time Temp Pulse Resp B/P Pulse Ox O2 Delivery O2 Flow Rate FiO2 12/05/16 09:08 36.8 88 18 120/65 95 Room Air Intake and Output 12/04/16 12/04/16 12/05/16 Cumulative From/Thru 15:00 23:00 07:00 12/03/16 15:30 - 12/05/16 06:23 Intake Total 1430 ml 653 ml 4254 ml Output Total 600 ml 650 ml 1650 ml Balance 830 ml 3 ml 2604 ml Intake Oral 1430 ml 592 ml 2502 ml IV Total 61 ml 1752 ml Output Urine Total 600 ml 650 ml 1650 ml # Voids 3 # Bowel Movements 4 4 10 Exam Gen: A/O x3 pleasant elderly gentleman in NAD Neck: supple, non tender, no thyromegaly, Full ROM HEENT: readily apparent left sided facial droop with nasal labial fold asymmetry apparently unchanged from baseline, PERRL, EOMI, no scleral icterus, no conjunctival pallor CV: Irregularly Irregular rhythm, no murmurs rubs or gallops Resp: Lungs CTA BL, no wheezing rales or rhonchi Abdomen: Soft, non tender, no organomegaly, BS + 4Q Extr: diffuse ecchymosis on BL UE, legs with RUIZ bandage wrap extending up to knees, mild BL LE pitting edema improved since prior exam Neuro: slightly dysarthria, marked L sided facial droop, strength equal and intact BL Psych: Appropriate mood and affect. IVs and Medications Medications Reviewed: Medications were reviewed in detail Lab and Diagnostics Item Value Date Time Red Blood Count 2.94 mil/mm3 L 12/05/16 0430 Mean Corpuscular Volume 92.5 fL 12/05/16 0430 Mean Corpuscular Hemoglobin 31.6 pg 12/05/16 0430 Mean Corpuscular Hemoglobin Concent 34.2 % 6/22/17 0430 Red Cell Distribution Width 11.8 % L 12/05/16429 Neutrophils (%) (Auto) 84.7 % H 12/05/16429 Lymphocytes (%) (Auto) 6.1 % L 12/05/16429 Monocytes (%) (Auto) 6.9 % 12/05/16429 Eosinophils (%) (Auto) 2.1 % 12/05/16429 Basophils (%) (Auto) 0.1 % 12/05/16429 Estimat Glomerular Filtration Rate 28 mL/min 12/05/16429 Calcium Level 8.8 mg/dL 12/05/16429 Phosphorus Level 3.5 mg/dL 12/05/16429 Magnesium Level 2.3 mg/dL 12/05/16429 Total Bilirubin 0.6 mg/dL 12/05/16429 Aspartate Amino Transf (AST/SGOT) 22 U/L 12/05/16429 Alanine Aminotransferase (ALT/SGPT) 13 U/L 12/05/16429 Alkaline Phosphatase 122 U/L 12/05/16429 Total Protein 7.0 g/dL 12/05/16429 Albumin 3.4 g/dL 12/05/16429 Result Diagram: 12/05/1642912/05/16429 Microbiology Urine culture grew GBS in 1/2 bottles MRSA nasal screen negative X-Rays, CTs and MRIs X-RAY CHEST ONE VIEW, PORTABLE IMPRESSION: 1. Prominent perihilar lung markings are suspicious for pulmonary vascular congestion/edema. Please correlate clinically. 2. Mild cardiomegaly. 2. Abnormal appearance of the left humeral head most likely is related to previous trauma. The patient does not have a history of trauma (prior fracture) , dedicated left shoulder imaging is recommended. Dictated by: Spencer Ji M.D. on 12/03/2016 at 15:50 Approved by: Spencer Ji M.D. on 12/03/2016 at 15:55 . Cardiac Echo Impressions Interpretation Summary There is normal left ventricular wall thickness. The ejection fraction is estimated to be 55-60%. There is apical inferior wall hypokinesis. The left atrium is severely dilated. There is moderate to severe mitral regurgitation. The aortic valve is mildly calcified. There is mild to moderate tricuspid regurgitation. Right ventricular systolic pressure is estimated to be 44 mmHg plus the clinically estimated CVP which cannot be estimated on this exam. Electronically signed by: Julián Garrido on Reading Physician:12/04/2016 05:30 PM . Assessment & Plan 71-year-old male with chronic lower extremity edema presents and hyperkalemia secondary to likely ORION on CKD of as yet undetermined etiology. Nephrology has been consulted, and began diuresis. Patient came in on both Lisinopril and Aldactone, which was likely a contributor to his hyperkalemia. Hyperkalemia, present on admission, acute. Active -Likely secondary to ORION, Lisinopril + Aldactone -K 6.7 on admission with associated ECG changes -Continue telemetry -Kayexalate every 6 hours, patient responding with BMs -Hold spironolactone and Lisinopril -IV fluids 100 mL an hour 1 L om presentation -Torsemide and Chlorthalidone per Nephrology -Will likely DC Aldactone upon discharge Elevated troponin of uncertain significance, present on admission, acute. Resolved -Trend troponins -Iniital trop weakly positive, subsequent trend consistently negative Hypertension, present on admission, chronic. Stable -Patient initially hypotensive at BP: 92/49 -Initially held home hypertensive medication -Continue to monitor -diuresis as above Paroxysmal atrial fibrillation, present on admission, chronic. Active -Continue to monitor on telemetry -Patient currently not anticoagulated secondary to previous CVA while on Pradaxa -Continue aspirin -Rate control with metoprolol Acute on CKD , present on admission, Improving -Acute exacerbation likely secondary to heart failure and Type 4 RTA -Cr. 3.81, baseline 2.4 from last admission on 06/04/2015 -IVF x 1L on presentation -Continue to follow CMP -Continue to monitor -Nephrology consult and we appreciated their recommendations -Diuresis per nephrology Chronic hyponatremia, present on admission, acute on chronic. Resolved -Na 127 on presentation, subsequently trending towards normal -Normal for this patient is likely closer to 130 -Continue to follow CMP Diabetes type 2, present on admission, chronic. Active -Insulin sliding scale -Accu-Cheks before meals at bedtime -Hemoglobin A1c pending -Diabetic diet Hypothyroidism, present on admission, chronic. Stable -TSH pending -Continue levothyroxine 25 g daily Hyperlipidemia, present on admission stable, chronic. Stable -Continue statin therapy Peripheral vascular disease with chronic lower extremity edema, present on admission, chronic. Active -Consult wound care -LE dressed and wrapped in RUIZ bandage Disposition: Patient will likely be able to DC home in the next 1-2 days, needs to be determined by PT and REVENUE ENFORCEMENT AGENT. Pain Evaluation: Adequate Pain Control VTE Prophylaxis: Sub-Q Heparin (Unfractionated) VTE Mechanical Devices: Intermittant Pneumatic CD Resuscitation Status: CPR: Attempt Resuscitation Brandon Lynn DO Dec 05, 2016 11:47
--- NOTE | 2016-12-05 18:30 | NUR ---
Left eye Pt stated when he fell he hit his left eye. Left eye discharging yellowish green discharge. Applied cold washcloth. Notified MD. Care continues.
[2016-12-05] MEDS: Erythromycin 0.5% 3.5 Gm Ophthalmic Ointment LEFT_EYE SCH (21:40)
[2016-12-06] MEDS: Heparin 5,000 Unit/mL Inj SUBQ SCH ×2 (00:05→09:09)
[2016-12-06 03:58] VITALS: BP 118/61; PULSE 75; RESP 20; O2SAT 94
[2016-12-06 04:18] LABS: BASOPHILS % (AUTO) 0.2 % (0-3); EOSINOPHILS % (AUTO) 1.1 % (0-5); MONOCYTES % (AUTO) 7.4 % (4-12); Mean Corpuscular Hemoglobin 31.7 pg (27.0-35.0); Mean Corpuscular Volume 93.7 fL (81-100); NEUTROPHILS % (AUTO) 83.6 % (40-74); Platelet Count 178 bil/L (150-400)
[2016-12-06 04:33] LABS: INR 1.1 ratio
[2016-12-06 04:39] LABS: Phosphorus 2.4 mg/dL (2.5-4.9)
[2016-12-06 04:58] VITALS: PULSE 85
--- NOTE | 2016-12-06 05:57 | NUR ---
Respiratory Pt on RA at HS, SpO2 91-92% and per patient "is normally higher than that". At approx. 2300, pt low-to-mid 80s on RA while asleep, and low 80s during and after exertion. Spontaneous recovery to approx. 91% on RA at first, but with subsequent exertions, pt unable to recover saturations, with SPO2 84-85% on RA. 2L NC applied, and pt SpO2 increased to 90-94%. Attempted to wean to 1L NC, but pt desaturated to 85-88%. Pt increased back to 2L NC and maintained saturations between 89-92% throughout shift.
[2016-12-06 08:00] VITALS: PULSE 88
[2016-12-06] MEDS: Insulin LISPRO 300 Unit/3 mL Inj SUBQ SCH ×2 (08:00→13:53)
[2016-12-06 08:08] VITALS: BP 136/78; PULSE 93; RESP 18; O2SAT 95
[2016-12-06] MEDS: Erythromycin 0.5% 3.5 Gm Ophthalmic Ointment LEFT_EYE SCH ×2 (09:07→13:55)
--- NOTE | 2016-12-06 09:27 | NUR ---
Evaluation completed. Please go to "Notes" then click on "Assessments and Notes" (bottom left corner of screen). Then select appropriate discipline tab on top of screen.
--- NOTE | 2016-12-06 10:53 | DRSVH ---
PROCEDURE: US RENAL SONOGRAM INDICATIONS: hyperkalemia, ORION TECHNIQUE: Real-time scanning was performed of the kidneys and bladder, with image documentation. COMPARISON: None. FINDINGS: Kidneys: Kidneys are normal in size. Right kidney measures 11.5 cm long; left kidney measures 11.6 cm long. Right renal cortical thickness is 1.2 cm; left renal cortical thickness is 1.1 cm. Renal c ortical echotexture is normal. No hydronephrosis or nephrolithiasis. No suspicious solid mass lesio ns. Right kidney contains a simple cortical cyst in the superior-medial pole measuring 9 x 17 x 20 mm . Possible fibrolipomatosis left renal pelvis. It Bladder: Pre-void bladder volume is 67 mL. Post-void residual is 14 mL. Pre-void images demonstrat e no intraluminal masses or stones. On pre-void images, no ureteral jets are noted with color Dopple r interrogation. (Of note, ureteral jets may not be detectable in up to 25% of cases due to insuffic ient differences in specific gravity between ureteral and bladder urine). Miscellaneous: No free pelvic fluid. IMPRESSION: 1. 2 cm right upper pole renal cyst. No obstruction. 2. Small post voiding bladder residual. Dictated by: Paul Chau M.D. on 12/06/2016 at 10:49 Approved by: Paul Chau M.D. on 12/06/2016 at 10:51
[2016-12-06 11:11] VITALS: BP 111/62; PULSE 81; RESP 18; O2SAT 89
--- NOTE | 2016-12-06 11:56 | PCM.PNNEPH ---
Subjective Date of Service Dec 06, 2016 Subjective Patient reports that he is doing well and would like to go home today. He is pleased with how much his swelling has improved. He has no complaints this morning. Exam Vital Signs Vital Sign - Last Date Time Temp Pulse Resp B/P Pulse Ox O2 Delivery O2 Flow Rate FiO2 12/06/16 11:11 36.7 81 18 111/62 89 Room Air 12/06/16 03:58 2.00 Intake and Output 12/05/16 12/05/16 12/06/16 Cumulative From/Thru 15:00 23:00 07:00 12/03/16 15:30 - 12/06/16 04:01 Intake Total 1050 ml 5304 ml Output Total 1650 ml Balance 1050 ml 3654 ml Intake Oral 1050 ml 3552 ml IV Total 1752 ml Output Urine Total 1650 ml # Voids 4 7 # Bowel Movements 2 12 Exam Gen: A/O x3 pleasant elderly gentleman in NAD Neck: supple, non tender, no JVD HEENT: readily apparent left sided facial droop with nasal labial fold asymmetry apparently unchanged from baseline, PERRLA, EOMI, no scleral icterus CV: Irregularly irregular rhythm, no murmurs rubs or gallops Resp: CTAB; no wheezing, rales, or rhonchi Abdomen: Soft, non tender, bowel sounds present throughout Extr: Mild pitting edema up to the knee; RUIZ wrap present on bilateral lower legs Radial pulse present and equivalent bilaterally, dorsalis pedis difficult to appreciate IVs and Medications Medications Reviewed: Medications were reviewed in detail Lab and Diagnostics Result Diagram: 12/06/160 12/06/16 0400 Plan Plan: 1) Acute on chronic kidney injury, improved. - Baseline CKD stage 3 and he has returned to that level. - Renal ultrasound remarkable only for a 2cm right kidney cyst. - Awaiting results of SPEP. - Continue to monitor BMP. - Patient would be welcome to follow up as an outpatient in the next month or so. 2) Acute hyperkalemia, improved. - Continue to hold spironolactone at this time. - Send patient home on torsemide 20 mg daily and chlorthalidone 25 mg. - May cautiously consider re-starting lisinopril. 3) Type 4 RTA. - Contributing to hyperkalemia. - Patient will not tolerate half-way use of multiple medications that contribute to potassium retention. - Holding spironolactone as above. Consider re-starting lisinopril as above. 4) Diastolic CHF with peripheral edema. - Continuing diuresis as above in #2 in an effort to optimize fluid status. 5) Type 2 diabetes mellitus. 6) Hypertension. Thank you for the consultation. Plan is for the patient to go home today. Jovanan Patton DO Dec 06, 2016 11:56
[2016-12-06] MEDS ORDERED: HYG25 PO (12:04)
[2016-12-06] MEDS ORDERED: ERYT1OIN7 LEFT_EYE (12:04)
[2016-12-06] MEDS ORDERED: TORS20TA3 PO (12:04)
--- NOTE | 2016-12-06 14:38 | NUR ---
Wound Care Patient seen for wound care and dressing changes prior to discharge. Plantar foot ulcers are stable and without sign or symptom of infection, these were cleaned with saline and gauze then redressed with calmoseptine, kerlix and coban on left and foam, calmoseptine, kerlix and coban on right. Right forearm hematoma was cleaned and dressed with foam and kerlix. Patient hasa follow up appointment with Dr Crawford at the wound center on Friday of next week.
--- NOTE | 2016-12-06 15:41 | PCM.DIMED ---
Edgardo Blackmon DO 12/06/16 1201: Discharge Instructions Date of Service Dec 06, 2016 Dates of Hospitalization Dec 03, 2016 at 18:15 Discharge Diagnosis Discharge Diagnosis Hyperkalemia Elevated troponin of uncertain significance Hypertension Paroxysmal atrial fibrillation Acute on CKD Chronic hyponatremia Diabetes type 2 Hypothyroidism Hyperlipidemia Peripheral vascular disease with chronic lower extremity edema Medication Instructions Additional med instructions Stop spironolactone Continue lisinopril Start taking torsemide 20 mg daily Start chlorthalidone 25 mg daily Patient Instructions Patient Instructions You were admitted for a high potassium level and kidney injury. Spironolactone likely played a part in this. Since admission her potassium is now within normal limits and your kidney injury has greatly improved, being the best it has been over the last 2 years of our records. We are discharging her today with instructions to follow-up with her primary care doctor within 1 week. Should you have racing heartbeats, chest pain, or stopped urinating please seek immediate medical attention. Follow-up plan Follow-up with your primary care doctor within 1 week Follow-up with Dr. Smith for your chronic kidney disease Follow-up Provider: Lalita Doe MD Follow-up with PCP in: 1 week Provider: Joe Smith DO Follow-up in: 2 weeks Juancarlos Ahuja MD 12/06/16 1549: Discharge Instructions Attending's Statement The patient was seen and examined together with Dr. Blackmon on 12/06/2016 and I agree with the history, exam and plan as outlined in the note above. . Edgardo Blackmon DO Dec 06, 2016 12:01 Juancarlos Ahuja MD Dec 06, 2016 15:49
--- NOTE | 2016-12-06 16:53 | NUR ---
Discharge Pt discharged at approximately 1650 to home. Pt stated his car is in the parking lot as he drove himself to wound care prior to being admitted. Pt given educational material for Chronic Kidney Disease, Hyperkalemia, chlorthalidone, erythromycin, torsemide. Next dose to be taken clearly written and dated. Pt acknowledged and understood information. IV DCd with catheter intact. Tele DCd ultrasound tech aware of discharge. Pt left with all personal belongings. Pt stated he had an wound care appt at 1330 today. notified. Wound care changed dressings in room. Pt escorted by [employer] HELPER to front door via wheelchair.
--- NOTE | 2016-12-06 18:22 | PCM.DC.MED ---
Discharge Summary Date of Service Dec 06, 2016 Dates of Hospitalization Date of Hospital Admission Dec 03, 2016 at 18:15 Date of Discharge: Dec 06, 2016 Providers: Admitting Physician: Juancarlos Ahuja MD Primary Care Physician: Lalita Doe MD Attending Physician: Juancarlos Ahuja MD Diagnosis at Time of Discharge Diagnosis at Time of Discharge Hyperkalemia Elevated troponin of uncertain significance Hypertension Paroxysmal atrial fibrillation Acute on CKD Chronic hyponatremia Diabetes type 2 Hypothyroidism Hyperlipidemia Peripheral vascular disease with chronic lower extremity edema Brief History Patient is a 71-year-old male who presents to the emergency room with the complaint of hyperkalaemia. The patient was in the wound care clinic today and had labs drawn and it was noted that he had hyperkalemia. The patient was brought over to the emergency room and found to still be in A. fib with no significant T-wave changes. The patient does have some signs of mild dementia which makes him a difficult historian. The patient currently denies any chest pain, shortness of breath, nausea, vomiting, diarrhea. Patient states that he does have some constipation and his last bowel movement was 2 days ago and his lower extremity edema is chronic in nature. 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 The patient stated that he had right-sided weakness and was unable to speak for several months however he has regained his strength o..n his right side but his speech does remain impaired. Hospital Course 71-year-old male with chronic lower extremity edema presents and hyperkalemia secondary to likely ORION on CKD of as yet undetermined etiology. Nephrology has been consulted, and began diuresis. Patient came in on both Lisinopril and Aldactone, which was likely a contributor to his hyperkalemia. Hyperkalemia, present on admission, acute. Active -Likely secondary to ORION, Lisinopril + Aldactone -K 6.7 on admission with associated ECG changes -Continue telemetry -Kayexalate every 6 hours, patient responding with BMs -IV fluids 100 mL an hour 1 L om presentation -Torsemide and Chlorthalidone per Nephrology; SENT HOME ON THESE TWO MEDS -STOPPED Aldactone upon discharge Paroxysmal atrial fibrillation, present on admission, chronic. Active -Continue to monitor on telemetry -Patient currently not anticoagulated secondary to previous CVA while on Pradaxa -Continue aspirin; rate controlled with metoprolol -ATTEMPTS TO OBTAIN HX OF STROKE WERE UNSUCCESSFUL; UNKNOWN IF PREVIOUS HEMORRHAGIC OR EMBOLIC, SUSPECTING FIRST BUT UNCONFIRMED; PATIENT STATES THAT HE WAS TAKEN TO [facility] WHICH IS MORE CONSISTENT WITH HEMORRHAGIC STROKE. WILL DEFER TO PCP FOR FURTHER FOLLOW-UP PATIENT SHOULD BE ON ANTICOAGULATION IF STROKE WAS EMBOLIC Elevated troponin of uncertain significance, present on admission, acute. Resolved -Trend troponins -Iniital trop weakly positive, subsequent trend consistently negative Hypertension, present on admission, chronic. Stable -Patient initially hypotensive at BP: 92/49 -Initially held home hypertensive medication -diuresis as above Acute on CKD , present on admission, Improving -Acute exacerbation likely secondary to heart failure and Type 4 RTA -Cr. 3.81, baseline 2.4 from last admission on 06/04/2015 -IVF x 1L on presentation -Nephrology consult and we appreciated their recommendations -Diuresis per nephrology -FOLLOW-UP WITH NEPHROLOGY AFTER DISCHARGE Chronic hyponatremia, present on admission, acute on chronic. Resolved -Na 127 on presentation, subsequently trending towards normal -Normal for this patient is likely closer to 130 Diabetes type 2, present on admission, chronic. Active -Insulin sliding scale -Accu-Cheks before meals at bedtime -Hemoglobin A1c 5.9 -Diabetic diet Hypothyroidism, present on admission, chronic. Stable -TSH pending -Continue levothyroxine 25 g daily Hyperlipidemia, present on admission stable, chronic. Stable -Continue statin therapy Peripheral vascular disease with chronic lower extremity edema, present on admission, chronic. Active -Consult wound care -LE dressed and wrapped in RUIZ bandage Patient discharged in stable and improved condition with an understanding of his disease and its course, timeline for follow-up, and went to return for additional medical care. Attempts were made to characterize his previous CVA as this dictates further anticoagulation. Request to both [place] and [facility] were unsuccessful in obtaining past MRIs. We will defer this additional records seeking to the PCP, whose records we do not have at this time. Exam Vital Signs (Last) Date Time Temp Pulse Resp B/P Pulse Ox O2 Delivery O2 Flow Rate FiO2 12/06/16 11:11 36.7 81 18 111/62 89 Room Air 12/06/16 03:58 2.00 Exam GEN: Patient was awake, alert, responding appropriately to questions HEENT: improved conjuntivitis CV: Irregular rhythm, no murmur auscultated Respiratory: CTAB, no wheezes, rales, rhonchi GI: +bowel sounds x4, soft, compressible, nontender to palpation, mildly distended EXT: +3 pitting edema in the LE to the knee, multiple bruises and skin changes on the upper extremities secondary to previous anticoagulation usage Neuro: + slurred speech, 5/5 UE strength, decreased CN 12, CN II-XI grossly intact Psych: mood and affect were appropriate Test 12/03/16 16:45 12/03/16 18:10 12/04/16 02:25 12/04/16 08:25 Hemoglobin A1c 5.9% (4.8-5.6) Urine Color Yellow (YELLOW) Urine Appearance Clear (CLEAR,HAZY) Urine pH 5.0 (5.0-8.0) Urine Specific [place] 1.010 (1.003-1.035) Urine Protein Negativemg/dL (NEG,TRACE) Urine Glucose (UA) Negativemg/dL (NEGATIVE) Urine Ketones Negativemg/dL (NEGATIVE) Urine Occult Blood Negative (NEGATIVE) Urine Nitrite Negative (NEGATIVE) Urine Bilirubin Negative (NEGATIVE) Urine Urobilinogen Normalmg/dL (NORMAL) Urine Leukocyte Esterase Trace (NEGATIVE) Urine RBC 0-2/hpf (0-2) Urine WBC 0-5/hpf (0-5) Urine Epithelial Cells Moderate/hpf (NONE-MOD) Urine Crystals None seen (NONE SEEN) Urine Bacteria Few/hpf (NONE-FEW) Urine Hyaline Casts None/lpf (NONE) Urine Granular Casts None seen (NONE SEEN) Urine Waxy Casts None seen (NONE SEEN) Urine Red Blood Cell Casts None seen (NONE SEEN) Urine White Blood Cell Casts None seen (NONE SEEN) Urine Mucus None seen (None Seen) Urine Trichomonas None seen (NONE SEEN) Urine Yeast None (NONE SEEN) Urinalysis Comment None Urine Culture Reflexed Indicated Prealbumin 12mg/dL (20-40) Thyroid Stimulating Hormone (TSH) 3.190uIU/mL (0.450-4.500) Uric Acid 2.8mg/dL (2.6-7.2) Troponin T < 0.010ug/L (0.0-0.011) Test 12/04/16 20:31 12/06/16 04:00 Urine Random Creatinine 21mg/dL (22-328) Urine Random Total Protein 13mg/dL (0-15) Urine Protein/Creatinine Ratio 0.62 (0-200) White Blood Count 9.1th/mm3 (3.8-10.1) Red Blood Count 2.84mil/mm3 (4.40-5.80) Hemoglobin 9.0g/dL (13.8-17.2) Hematocrit 26.6% (41.0-50.0) Mean Corpuscular Volume 93.7fL (81-100) Mean Corpuscular Hemoglobin 31.7pg (27.0-35.0) Mean Corpuscular Hemoglobin Concent 33.8% (32.0-37.0) Red Cell Distribution Width 12.2% (12.3-15.4) Platelet Count 178bil/L (150-400) Neutrophils (%) (Auto) 83.6% (40-74) Lymphocytes (%) (Auto) 7.5% (14-46) Monocytes (%) (Auto) 7.4% (4-12) Eosinophils (%) (Auto) 1.1% (0-5) Basophils (%) (Auto) 0.2% (0-3) Prothrombin Time 11.8sec (8.1-12.5) Prothromb Time International Ratio 1.10ratio Sodium Level 135mEq/L (134-144) Potassium Level 4.3mEq/L (3.5-5.2) Chloride Level 100mEq/L (97-108) Carbon Dioxide Level 21mmol/L (18-29) Blood Urea Nitrogen 38mg/dL (8-27) Creatinine 1.87mg/dL (0.76-1.27) Estimat Glomerular Filtration Rate 38mL/min (>59) Glucose Level 143mg/dL (60-99) Calcium Level 8.8mg/dL (8.5-10.1) Phosphorus Level 2.4mg/dL (2.5-4.9) Magnesium Level 2.0mg/dL (1.6-2.6) Total Bilirubin 0.8mg/dL (0.0-1.2) Aspartate Amino Transf (AST/SGOT) 15U/L (0-50) Alanine Aminotransferase (ALT/SGPT) 11U/L (0-44) Alkaline Phosphatase 97U/L (25-160) Total Protein 7.1g/dL (6.4-8.4) Albumin 3.0g/dL (3.4-5.0) Discharge Medications Discharge Medications Allopurinol (Allopurinol) 100 Mg Tablet 100 MG PO BID Prescribed by: ARSALAN BRASHER Amlodipine (Amlodipine) 5 Mg Tablet 5 MG PO DAILY (Reported) Aspirin (Aspirin) 81 Mg Tablet 81 MG PO DAILY (Reported) Carvedilol (Carvedilol) 12.5 Mg Tablet 12.5 MG PO BID (Reported) Chlorthalidone (Chlorthalidone) 25 Mg Tablet 25 MG PO DAILY Prescribed by: MELVINA YEBOAH DO Erythromycin Ophth Oint (Erythromycin Ophth Oint) 3.5 Gm Oint...g. 1 APPLIC LEFT _EYE TID Prescribed by: MELVINA YEBOAH DO Folic Acid (Folic Acid) 1 Mg Tablet 1 MG PO DAILY (Reported) Insulin Lispro (Humalog Kwikpen) 200 Unit/Ml (3 Ml) Insuln.pen 200 UNIT SQ ASDIRECTED Prescribed by: SUAD ALVARADO DO Levothyroxine (Levothyroxine) 25 Mcg Tablet 25 MCG PO DAILY Prescribed by: ARSALAN BRASEHR Lisinopril (Lisinopril) 10 Mg Tablet 10 MG PO DAILY (Reported) Magnesium Oxide (Mag-Oxide) 400 Mg Tablet 400 MG PO BID (Reported) Torsemide (Torsemide) 20 Mg Tablet 20 MG PO DAILY Prescribed by: MELVINA YEBOAH DO Additional med instructions Stop spironolactone Continue lisinopril Start taking torsemide 20 mg daily Start chlorthalidone 25 mg daily Followup Plan Follow-up plan Follow-up with your primary care doctor within 1 week Follow-up with Dr. Smith for your chronic kidney disease Patient Instructions You were admitted for a high potassium level and kidney injury. Spironolactone likely played a part in this. Since admission her potassium is now within normal limits and your kidney injury has greatly improved, being the best it has been over the last 2 years of our records. We are discharging her today with instructions to follow-up with her primary care doctor within 1 week. Should you have racing heartbeats, chest pain, or stopped urinating please seek immediate medical attention. Follow-up Provider: Lalita Doe MD Follow-up with PCP in: 1 week Provider: Joe Smith DO Follow-up in: 2 weeks Time spent Greater than 30 minutes was spent in preparation of discharge with greater than 50% of that time dedicated to patient counseling and coordination of care. . Attending Statement The patient was seen and examined together with Dr. Yeboah on 12/06/2016 and I agree with the history, exam and plan as outlined in the note above. . copies to: Lalita Doe MD, Michael R DO Dec 06, 2016 18:22 Juancarlos Ahuja MD Dec 07, 2016 07:34
== END 2016-12-06 17:00 | disposition home or self-care (01) | DRG 640 ==
LOC: SED 15:25 → PCC 18:15
PROVIDERS: ADMIT Internal Medicine; ATTEND Neuromusculoskeletal Medicine & OMM
DX: E87.5 Hyperkalemia (principal); I50.43 Acute on chronic combined systolic (congestive) and diastolic (congestive) heart failure; I50.33 Acute on chronic diastolic (congestive) heart failure; N17.9 Acute kidney failure, unspecified; I13.0 Hypertensive heart and chronic kidney disease with heart failure and stage 1 through stage 4 chronic kidney disease, or unspecified chronic kidney disease; I69.951 Hemiplegia and hemiparesis following unspecified cerebrovascular disease affecting right dominant side; E87.1 Hypo-osmolality and hyponatremia; I48.0 Paroxysmal atrial fibrillation; E78.5 Hyperlipidemia, unspecified; I73.9 Peripheral vascular disease, unspecified; T50.0X5A Adverse effect of mineralocorticoids and their antagonists, initial encounter; I25.10 Atherosclerotic heart disease of native coronary artery without angina pectoris; E03.9 Hypothyroidism, unspecified; N18.3 Chronic kidney disease, stage 3 (moderate); Z79.4 Long term (current) use of insulin; Z79.82 Long term (current) use of aspirin; I69.920 Aphasia following unspecified cerebrovascular disease